=== PATIENT | male | born 2000 | race Hispanic/Latino ===

== ENCOUNTER 2022-09-13 18:34 | Emergency (ER) | payer OTHER ==
[~2022-09-13] VITALS: Ht 175.3 cm; Wt 95.3 kg
[2022-09-13 18:40] VITALS: BP 128/66
== END 2022-09-13 20:06 | disposition left against medical advice (07) ==
LOC: EDH 18:34
DX: R68.84 Jaw pain (principal); Z53.21 Procedure and treatment not carried out due to patient leaving prior to being seen by health care provider
CPT/HCPCS: 99281